=== PATIENT | female | born 1995 | race Caucasian/White ===

== ENCOUNTER → 2023-03-19 13:30 | Outpatient (REF) | payer OTHER, SELFPAY ==
[2023-03-19 14:47] LABS: % Basophils 0.4 % (0-2); % Eosinophils 0.5 % (0-6); % Immature Granulocytes 0.3 % (0-0.5); % Lymphocytes 27.2 % (20.5-51.1); % Monocytes 6.7 % (1.7-9.3); % Neutrophils 64.9 % (42.2-75.2); Absolute Lymphocytes 2.1 10^3/uL (1.2-3.4); Absolute Monocytes 0.5 10^3/uL (0.1-0.6); Hemoglobin 13.8 g/dL (12.0-16.0); Mean Corp Hgb Conc. 36.3 g/dL (33.0-37.0); Mean Corpuscular Hgb 29.6 pg (27.0-31.0); Mean Corpuscular Volume 81.4 fL (81.0-99.0); Mean Platelet Volume 8.9 fL (7.4-10.4); Nucleated Red Blood Cells % 0 %; Platelet Count 301 10^3/uL (130-400); Red Blood Cell Count 4.67 10^6/uL (4.20-5.40); Red Cell Dist. Width 12.5 % (11.5-14.5); White Blood Cell Count 7.7 10^3/uL (4.8-10.8)
== END ==
LOC: RAD 13:30
PROVIDERS: ATTENDING PHYSICIAN Student in an Organized Health Care Education/Training Program
DX: Z32.01 Encounter for pregnancy test, result positive (principal)
CPT/HCPCS: 36415; 76801; 76817; 84702; 85025; 86900; 86901

== ENCOUNTER → 2023-09-27 13:02 | Outpatient (REF) | payer OTHER, SELFPAY | LOC: HWRAD 13:02 | PROVIDERS: ATTENDING PHYSICIAN Obstetrics & Gynecology; FAMILY PHYSICIAN Physician Assistant Medical | DX: N97.0 Female infertility associated with anovulation (principal) | CPT/HCPCS: 76856 ==

== ENCOUNTER → 2023-10-11 10:42 | Outpatient (REF) | payer OTHER, SELFPAY ==
[2023-10-11 12:22] LABS: Free T4 0.85 ng/dl (0.78-2.19); Vitamin D, 25-OH*** 41.7 ng/mL (30-80)
[2023-10-11 12:35] LABS: TSH 0.79 uIU/ml (0.47-4.68)
== END ==
LOC: REG 10:42
PROVIDERS: ATTENDING PHYSICIAN Physician Assistant Medical
DX: N92.6 Irregular menstruation, unspecified (principal); E55.9 Vitamin D deficiency, unspecified
CPT/HCPCS: 36415; 82306; 84439; 84443

== ENCOUNTER → 2024-07-07 14:05 | Outpatient (REF) | payer OTHER, SELFPAY | LOC: HWRAD 14:05 | PROVIDERS: ATTENDING PHYSICIAN Physician Assistant | DX: R10.11 Right upper quadrant pain (principal); R07.81 Pleurodynia; R06.02 Shortness of breath | CPT/HCPCS: 71101; 76700 ==